=== PATIENT | female | born 1950 | race Caucasian/White ===

== ENCOUNTER → 2023-11-07 09:43 | Outpatient (REF) | payer MEDICARE, OTHER, SELFPAY | LOC: HWWDC 09:43 | PROVIDERS: ATTENDING PHYSICIAN Family Medicine | DX: Z12.31 Encounter for screening mammogram for malignant neoplasm of breast (principal) | CPT/HCPCS: 77063; 77067 ==

== ENCOUNTER → 2023-11-13 10:51 | Outpatient (REF) | payer MEDICARE, OTHER, SELFPAY | LOC: HWRAD 10:51 | PROVIDERS: ATTENDING PHYSICIAN Specialist; FAMILY PHYSICIAN Family Medicine | DX: N13.30 Unspecified hydronephrosis (principal) | CPT/HCPCS: 76775 ==

== ENCOUNTER → 2024-02-04 09:38 | Outpatient (REF) | payer MEDICARE, OTHER, SELFPAY ==
[2024-02-04] MEDS: LEXISCAN 0.4 MG IV (11:25)
== END ==
LOC: RCS 09:38
PROVIDERS: ATTENDING PHYSICIAN Internal Medicine Cardiovascular Disease; FAMILY PHYSICIAN Family Medicine; REFERRING PHYSICIAN Internal Medicine Cardiovascular Disease
DX: R06.02 Shortness of breath (principal); Z01.810 Encounter for preprocedural cardiovascular examination
CPT/HCPCS: 78452; 93017; A9500; J2785

== ENCOUNTER → 2024-06-16 13:01 | Outpatient (REF) | payer MEDICARE, OTHER, SELFPAY | LOC: HWEVLT 13:01 | PROVIDERS: ATTENDING PHYSICIAN Radiology Vascular & Interventional Radiology | DX: I83.891 Varicose veins of right lower extremity with other complications (principal) | CPT/HCPCS: 93971 ==

== ENCOUNTER → 2024-09-09 09:35 | Outpatient (REF) | payer MEDICARE, OTHER, SELFPAY | LOC: HWEVLT 09:35 | PROVIDERS: ATTENDING PHYSICIAN Radiology Vascular & Interventional Radiology | DX: I83.891 Varicose veins of right lower extremity with other complications (principal) | CPT/HCPCS: 36478; C1769 ==

== ENCOUNTER → 2024-09-22 09:34 | Outpatient (REF) | payer MEDICARE, OTHER, SELFPAY | LOC: HWEVLT 09:34 | PROVIDERS: ATTENDING PHYSICIAN Radiology Vascular & Interventional Radiology | DX: I83.891 Varicose veins of right lower extremity with other complications (principal) | CPT/HCPCS: 36478; 93971; C1769 ==

== ENCOUNTER → 2024-10-08 11:39 | Outpatient (REF) | payer MEDICARE, OTHER, SELFPAY | LOC: HWEVLT 11:39 | PROVIDERS: ATTENDING PHYSICIAN Radiology Vascular & Interventional Radiology | DX: I83.891 Varicose veins of right lower extremity with other complications (principal) | CPT/HCPCS: 93971 ==